=== PATIENT | female | born 1980 | race African-American/Black ===

== ENCOUNTER 2018-02-02 19:45 | Emergency (ER) | payer BC ==
[~2018-02-02] VITALS: Ht 167.6 cm; Wt 81.6 kg
[2018-02-02 19:47] VITALS: BP 110/58
[2018-02-02] MEDS ORDERED: ZOLP10TA1 PO (19:50)
--- NOTE | 2018-02-02 19:52 | NUR ---
37/F came in w c/o left foot pain s/p falling today. Per pt she walking and "twisted her ankle", reports 10/10 paint to left foot, +edema, +redness, +PMSC but painful to ambulate. Denies LOC/ head injury.
--- NOTE | 2018-02-02 19:52 | NUR ---
Patient transferred to bed 8 via wheelchair by nurse after providing a urine specimen. RN evaluating patient at bedside.
--- NOTE | 2018-02-02 19:58 | NUR ---
Dr. Farias evaluating patient at bedside.
[2018-02-02] MEDS ORDERED: IBUPROFEN 800 MG TAB PO ONE (20:00)
--- NOTE | 2018-02-02 20:04 | NUR ---
xray at bedside
[2018-02-02 20:24] VITALS: BP 127/82
== END 2018-02-02 20:23 | disposition home or self-care (01) ==
LOC: MED 19:45
DX: S93.602A Unspecified sprain of left foot, initial encounter (principal); Z79.899 Other long term (current) drug therapy; W01.0XXA Fall on same level from slipping, tripping and stumbling without subsequent striking against object, initial encounter; Y93.01 Activity, walking, marching and hiking; Y92.89 Other specified places as the place of occurrence of the external cause; Y99.8 Other external cause status
CPT/HCPCS: 73630; 81025; 99283

== ENCOUNTER 2021-03-07 12:40 | Emergency (ER) | payer BC, OTHER ==
[~2021-03-07] VITALS: Ht 167.6 cm; Wt 81.6 kg
[~2021-03-07 12:40] MED LIST: ZOLP10TA1 PO
[2021-03-07 13:17] VITALS: BP 106/65
--- NOTE | 2021-03-07 13:24 | NUR ---
LOBBY Addendum: 03/07/21 at 1325 by [email or web address] HANDED ON URINE CUP.
[2021-03-07] MEDS ORDERED: KETOROLAC 30 MG/ML VIAL IM ONE (13:40)
[2021-03-07] MEDS ORDERED: NAPR-54 PO (14:21)
[2021-03-07] MEDS ORDERED: CYCL-711 PO (14:21)
--- NOTE | 2021-03-07 14:21 | NUR ---
NO NURSING CARE GIVEN. Patient discharged with v/s stable. Written and verbal after care instructions given and explained. Patient alert, oriented and verbalized understanding of instructions. Ambulatory with steady gait. All questions addressed prior to discharge. ID band removed. Patient advised to follow up with PMD. Rx of FLEXERIL, NAPROSYN given. Patient educated on indication of medication including possible reaction and side effects. Opportunity to ask questions provided and answered.
[2021-03-07 14:38] VITALS: BP 113/74
== END 2021-03-07 14:25 | disposition home or self-care (01) ==
LOC: MED 12:40
DX: S29.012A Strain of muscle and tendon of back wall of thorax, initial encounter (principal); X58.XXXA Exposure to other specified factors, initial encounter; Y93.89 Activity, other specified; Y92.89 Other specified places as the place of occurrence of the external cause; Y99.8 Other external cause status
CPT/HCPCS: 81002; 81025; 96372; 99283; J1885

== ENCOUNTER 2021-12-20 09:45 | Emergency (ER) | payer OTHER ==
[~2021-12-20] VITALS: Ht 167.6 cm; Wt 86.2 kg
[~2021-12-20 09:45] MED LIST changes: +CYCL-711 PO; +NAPR-54 PO
[2021-12-20 10:06] VITALS: BP 107/63
--- NOTE | 2021-12-20 10:13 | NUR ---
JESSICA. HANDED ON URINE CUP.
--- NOTE | 2021-12-20 11:12 | NUR ---
called once 1110, no answer
--- NOTE | 2021-12-20 11:19 | NUR ---
PT AMBULATED TO ROOM 8
--- NOTE | 2021-12-20 11:19 | NUR ---
Hung tamez in ED - 12/20/21 at 1119 by AIDE pt walked to bed
--- NOTE | 2021-12-20 11:30 | NUR ---
41YO FEMALE PT C/O 10/06 LL BACK PAIN X3DAYS. BACK PRESENTS W/O VISIBLE INJURY, TENDER TO TOUCH. STATES PAIN AT MOST ON MOVEMENT. STATES MILD RELIEF AFTER TAKING NORCO AND MUSCLE RELAXANT . DENIES RECENT INJURY, DYSURIA, N/V/D, CHEST PAIN OR SOB. PT AAOX4, RESPIRATIONS EVEN AND UNLABORED. HOB POSITIONED PER COMFORT. HX:DENIES NKA
--- NOTE | 2021-12-20 11:31 | NUR ---
ROGERIO AHUJA AT BEDSIDE FOR EVALUATION
[2021-12-20] MEDS ORDERED: KETOROLAC 30 MG/ML VIAL IM ONE (11:50)
[2021-12-20] MEDS ORDERED: CAPS1ADH5 TP (11:50)
[2021-12-20] MEDS ORDERED: NAPR-1704 PO (11:50)
[2021-12-20 12:18] VITALS: BP 113/66
--- NOTE | 2021-12-20 12:18 | NUR ---
Patient discharged with v/s stable. Written and verbal after care instructions FOR LOW BACK SPRAIN given and explained. Patient alert, oriented and verbalized understanding of instructions. Ambulatory with steady gait. All questions addressed prior to discharge. ID band removed. Patient advised to follow up with PMD. Rx of NAPROXEN AND SALOPAS GEL PATCH HOT given. Opportunity to ask questions provided and answered.
--- NOTE | 2021-12-20 12:21 | NUR ---
The patient's care was reviewed and supervised by ED Agency Nurse 9, RN, RN.
== END 2021-12-20 12:18 | disposition home or self-care (01) ==
LOC: MED 09:45
DX: S39.012A Strain of muscle, fascia and tendon of lower back, initial encounter (principal); Z98.890 Other specified postprocedural states; Z79.899 Other long term (current) drug therapy; X58.XXXA Exposure to other specified factors, initial encounter; Y93.89 Activity, other specified; Y92.89 Other specified places as the place of occurrence of the external cause; Y99.8 Other external cause status
CPT/HCPCS: 81002; 81025; 96372; 99283; J1885